=== PATIENT | female | born 2000 | race Two or more races ===

== ENCOUNTER 2021-08-09 15:00 | Inpatient (IN) | payer OTHER ==
[~2021-08-09] VITALS: Ht 160 cm; Wt 96.2 kg
== END 2021-08-20 13:30 | disposition home or self-care (01) | DRG 788 ==
LOC: LDR 08-17 08:18 → O/R 08-17 14:23 → OB/GYN 08-17 14:55
PROVIDERS: ADMIT Obstetrics & Gynecology; ATTEND Obstetrics & Gynecology
PROC: 10907ZC Drainage of Amniotic Fluid, Therapeutic from Products of Conception, Via Natural or Artificial Opening (ICD-10-PCS; 2021-08-17)
PROC: 3E033VJ Introduction of Other Hormone into Peripheral Vein, Percutaneous Approach (ICD-10-PCS; 2021-08-17)
PROC: 4A1HXFZ Monitoring of Products of Conception, Cardiac Rhythm, External Approach (ICD-10-PCS; 2021-08-17)
PROC: 10D00Z1 Extraction of Products of Conception, Low, Open Approach (ICD-10-PCS; principal; 2021-08-17 11:00)
DX: O62.1 Secondary uterine inertia (principal); O76 Abnormality in fetal heart rate and rhythm complicating labor and delivery; O99.824 Streptococcus B carrier state complicating childbirth; Z37.0 Single live birth; Z3A.39 39 weeks gestation of pregnancy; Z20.822 Contact with and (suspected) exposure to COVID-19

== ENCOUNTER 2021-08-28 01:58 | Emergency (ER) | payer OTHER ==
[~2021-08-28] VITALS: Ht 160 cm; Wt 84.8 kg
[2021-08-28] MEDS ORDERED: CEFUROXIME500 MG PO (07:01)
[2021-08-28] MEDS ORDERED: NAPROXEN375 MG PO (07:01)
== END 2021-08-28 07:24 | disposition home or self-care (01) ==
LOC: ER 01:58
DX: T81.9XXA Unspecified complication of procedure, initial encounter (principal); R10.2 Pelvic and perineal pain; Z98.890 Other specified postprocedural states; X58.XXXA Exposure to other specified factors, initial encounter; Y92.89 Other specified places as the place of occurrence of the external cause

== ENCOUNTER 2022-11-21 10:55 | Outpatient (CLI) | payer OTHER ==
[~2022-11-21 10:55] MED LIST: CEFUROXIME500 MG PO; NAPROXEN375 MG PO
== END 2022-11-21 10:58 | disposition home or self-care (01) ==
LOC: LAB 10:55
PROVIDERS: ATTEND Obstetrics & Gynecology
DX: O09.71 Supervision of high risk pregnancy due to social problems, first trimester (principal)

== ENCOUNTER 2022-11-22 11:20 | Outpatient (CLI) | payer OTHER | END 2022-11-22 11:26 | disposition home or self-care (01) | LOC: LAB 11:20 | PROVIDERS: ATTEND Obstetrics & Gynecology | DX: O09.71 Supervision of high risk pregnancy due to social problems, first trimester (principal) ==

== ENCOUNTER 2023-02-23 10:22 | Outpatient (CLI) | payer OTHER | END 2023-02-23 10:23 | disposition home or self-care (01) | LOC: LAB 10:22 | PROVIDERS: ATTEND Obstetrics & Gynecology | DX: Z34.83 Encounter for supervision of other normal pregnancy, third trimester (principal) ==

== ENCOUNTER 2023-03-06 10:29 | Inpatient (IN) | payer OTHER ==
[~2023-03-06] VITALS: Ht 165.1 cm; Wt 96.6 kg
[2023-03-07] MEDS ORDERED: INTEGRA F CAPS1 EAC1 (09:16)
[2023-03-07] MEDS ORDERED: FOLIC ACID1 MG (09:16)
== END 2023-03-09 14:52 | disposition home or self-care (01) | DRG 788 ==
LOC: OB/GYN 10:29
PROVIDERS: ADMIT Obstetrics & Gynecology; ATTEND Obstetrics & Gynecology
PROC: 4A1HXCZ Monitoring of Products of Conception, Cardiac Rate, External Approach (ICD-10-PCS; 2023-03-06)
PROC: 0DNW0ZZ Release Peritoneum, Open Approach (ICD-10-PCS; 2023-03-07)
PROC: 10D00Z1 Extraction of Products of Conception, Low, Open Approach (ICD-10-PCS; principal; 2023-03-07 14:45)
DX: O99.892 Other specified diseases and conditions complicating childbirth (principal); N73.6 Female pelvic peritoneal adhesions (postinfective); Z3A.39 39 weeks gestation of pregnancy; Z37.0 Single live birth; Z20.822 Contact with and (suspected) exposure to COVID-19